=== PATIENT | male | born 1940 | race Caucasian/White ===

== ENCOUNTER → 2017-08-26 10:02 | Day surgery (SDC) | payer MEDICARE ==
[~2017-08-26 10:02] MED LIST: Heparin 2 UNITS/ML IVPREMIX* 0 ML IV ONE; Heparin 2 UNITS/ML IVPREMIX* 2,000 ML IV ONE; Heparin(*) 1000 UNIT/ML 10 ML VIAL CATH LAB IV ONE; Iohexol 350 (CONTRAST) 200 ML MDV IV ONE; Lidocaine 1% INJ* 10 MG/ML 30 ML SDV ONE; Midazolam* 1 MG/ML 10 ML VIAL (10 MG) ONE; VERAPAMIL 2.5 MG/ML 2 ML VIAL ** 5 mg/2 ml ONE; fentaNYL* 50 MCG/ML 2 ML VIAL (100 MCG VIAL) ONE; nitroGLYCERIN DRIP* 25,000 MCG/250 ML BTL ONE
[2017-08-26 11:21] LABS: ABS Basophils 0.1 10^3/ul (0-0.2); ABS Eosinophils 0.2 10^3/ul (0-0.6); ABS Lymphocytes 1.5 10^3/ul (1.0-4.8); ABS Monocytes 0.6 10^3/ul (0-0.8); ABS Neutrophils 4.4 10^3/ul (1.5-7.7); ABS Nucleated RBC 0 10^3/ul; Hematocrit 42 % (42-52); Hemoglobin 14.5 g/dl (14.0-18.0); Mean Corpuscular HGB Conc 34 g/dl (31-36); Mean Corpuscular Hemoglobin 31 pg (27-31); Mean Corpuscular Volume 90 fL (80-94); Mean Platelet Volume 9.3 um3 (7.4-10.4); Nucleated Red Blood Cells % 0.1; Platelet Count 180 10^3/ul (150-450); Red Blood Count 4.73 10^6/ul (4.0-5.4); Red Cell Distribution Width 14 % (10.5-15); White Blood Count 6.7 10^3/ul (3.5-10.8)
[2017-08-26 11:35] LABS: INR 0.99 (0.77-1.02)
[2017-08-26 11:43] LABS: EGFR Non-African American 66.1 (>60)
--- NOTE | 2017-08-26 12:15 | HP ---
CC: Dr. Gregory Macdonald; Dr. Masood Garcia; Dr. Len Mathur, Dept. of Cardiovascular Surgery, [facility]* DATE OF ADMISSION: 08/26/2017. CHIEF COMPLAINT: Patient now for cardiac catheterization in light of worsening mitral valve regurgitation from mitral valve prolapse with a question of a ruptured chordae tendineae. HISTORY OF PRESENT ILLNESS: The patient is a pleasant, 76-year-old gentleman who is followed in our group by Dr. Masood Garcia. He has a history of mitral valve prolapse from back in 2010. He has been watched for this more recently from 2015 [address] Garcia. He had an echocardiogram done in October of 2015 demonstrating normal LV function at 60 to 65 percent with posterior leaflet prolapse with at least moderate to severe anteriorly directed mitral regurgitation with moderate to severely dilated left atrium and mild pulmonary hypertension at 42 mmHg. He was last seen by Dr. Garcia in the office on 2016 and at that point he had stopped taking his blood pressure medications because he had felt tired and had a low blood pressure. At that time, he was otherwise fairly asymptomatic. He apparently underwent an exercise stress echo at that time and it was not felt that they needed to intervene at that time. More recently now, he called complaining about shortness of breath, progressive in nature. He describes when he walks he will get in sometimes. When he goes to lie down at night, sometimes he cannot lie down because he feels short of breath and has to sit up, and then eventually he will go lie down again and eventually go to sleep. He states he does not wake up in the middle of the night with shortness of breath. He denies lower leg edema. Because of these symptoms, an echocardiogram was performed on 08/24/2017 showing that the LVEF was 55 to 60 percent with the left atrium moderate to severely dilated. There was normal right ventricular size and function. There was mild to moderate aortic regurgitation. 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 He had mild pulmonary hypertension as well. Dr. Garcia discussed with the patient further and felt the patient needed, at this point in time, to have his mitral valve replaced. Dr. Garcia asked us to perform diagnostic cardiac catheterization on him in order to assess for the presence of coronary artery disease. Interestingly, the patient states when he walks, in addition to getting his shortness of breath, he feels somewhat nauseous, like he is going to throw up, but never throws up. He denies any specific chest or arm discomfort. PAST MEDICAL HISTORY: Skin lesions, hypertension, his mitral valve prolapse, a history of adenomatous polyp of the colon, and reported dyslipidemia. 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 HOME MEDICATIONS: Losartan/Hydrochlorothiazide 50/12.5 once a day. ALLERGIES: PENICILLIN and LISINOPRIL reportedly. FAMILY HISTORY: Father of colon cancer at 88; mother of lung cancer at 88. He is the only child. SOCIAL HISTORY: He is . He lives with his . He is retired. He has never smoked. He denies any excessive alcohol or drug usage. He drinks a fair amount of coffee on a regular basis. He does not exercise routinely. REVIEW OF SYSTEMS: He denies any significant weight loss. He denies any visual disturbance. He denies any hearing difficulties. The shortness of breath is as mentioned. He denies any palpitations or passing out spells. He denies any abdominal pain, bleeding, or constipation. He denies any difficulty urinating, any hematuria, or kidney disease. He denies any arthritis. He denies any new rashes. Neuro: He denies any aphasia, headache. Psych: He denies any depression. Endocrine: He denies any diabetes or thyroid disease. Hematological: He denies any bleeding or clotting. Immuno: Denies any chills or fever. PHYSICAL EXAMINATION When I see him in the catheterization hold area: VITAL SIGNS: Blood pressure 133/103, pulse 85 to 90, respirations are 16, O2 saturation 98 percent on room air. HEENT: Conjunctivae pink. Sclerae clear. Mouth reveals moist mucosa. NECK: Supple. Carotid has good upstroke and volume. I do not appreciate definitive bruit or transmitted murmur. LUNGS: Reveal no accessory muscle usage. There is good excursion. There are no active rales, rhonchi, or wheezes. HEART: Reveals no palpable heaves or thrills. There is a 3/6 holosystolic murmur heard throughout the precordial area to the apical region. ABDOMEN: Soft, nontender. EXTREMITIES: Without edema. Peripheral pulses are intact. MUSCULOSKELETAL: The patient moves all extremities appropriately. NEUROLOGIC: The patient is alert and oriented with normal mentation. PSYCHOLOGICAL: Patient with normal affect. IMAGING STUDY: Chest x-ray report recently performed on 08/24/2017 revealed cardiomegaly noted. There was no active cardiopulmonary disease. OVERALL ASSESSMENT: Jose now presents with worsening symptoms and clearly worsened mitral regurgitation according to the report of the most recent echocardiogram. At this point in time, we will be performing diagnostic cardiac catheterization to look for the presence of underlying coronary artery disease which would also have to be addressed by the surgeon at the time of surgery. We did have a discussion and Dr. Garcia had recommended Dr. Len Mathur at [facility] to the patient. He is in agreement with this and as such we will try to schedule this for as soon as possible to have him see Dr. Mathur with surgery perhaps the next day. I will personally speak with Dr. Mathur regarding this. Further management will be made pending results of the cardiac catheterization. The risks and benefits were explained. He understood them and wished to proceed. [id number]/[facility] #: [id number] MTDD
[2017-08-26 14:33] VITALS: BP 132/73
--- NOTE | 2017-08-27 01:45 | CATH ---
CC: Dr. Masood Garcia; Dr. Gregory Macdonald; Dr. Jhonathan Mathur, Department of Cardiovascular Surgery at [facility] CARDIAC CATHETERIZATION REPORT: DATE OF PROCEDURE: 08/26/17 INDICATION FOR PROCEDURE: The patient with progressive shortness of breath and severe mitral regurgitation with question of ruptured chordae tendineae, assess coronary anatomy to rule out the presence of coronary artery disease. PROCEDURE: Coronary arteriography, left heart catheterization, left ventriculography. The patient was interviewed and examined in the holding area where the risks and benefits were explained. He understood them and wished to proceed. He states that he has had progressive shortness of breath over the past several months of a more recent time. Interestingly he also notices that when he walks he develops a profound nauseous sensation like he is going to vomit and generalized weakness. He recently notified Dr. Garcia these symptoms and an echocardiogram was performed that was interpreted suggesting worsening of the mitral regurgitation and a possible ruptured chordae tendineae. Dr. Garcia asked if we could get the patient to undergo cardiac catheterization as soon as possible and as such he was scheduled for urgent cardiac catheterization. LABORATORY RESULTS: Precatheterization hemoglobin and hematocrit of 14.5 and 42 with a platelet count of 180,000. BUN and creatinine of 17 and 1, sodium 138 , potassium 4.2, chloride 105, bicarb 26. INR was 0.99. The right radial artery was assessed under ultrasound guidance in the holding area and found to be acceptable for an approach. EQUIPMENT UTILIZED: 1. A 6-Indian glide sheath. 2. A 5-Indian TIG 4 curve catheter was attempted for coronary arteriography. This was exchanged for an FL 3.5 curve left, 5-Indian left coronary catheter, and a FR 4- curve 5-Indian right coronary diagnostic catheter. 3. Left heart catheterization, left ventriculography were performed utilizing a 5-Indian pigtail Performa radial catheter. DESCRIPTION OF PROCEDURE: The patient was brought into the cardiovascular laboratory where a formal time-out was performed. He was prepped and draped in sterile fashion. The right radial artery area was anesthetized with 1% lidocaine. The right radial artery area was cannulated and a sheath was placed. Coronary arteriography was performed ultimately utilizing the Keyla catheters. Following this, central aortic pressure was recorded using the TIG Performa radial catheter advanced to the ascending aorta. The central aortic pressure was recorded. The catheter was then passed across the aortic valve into the left ventricle where left ventricular pressure was recorded. Left ventriculography was performed utilizing a total of 24 cc of Omnipaque dye at a rate of 12 cc per second. The catheter was then pulled across the aortic valve. At the end of the case, the catheter was removed over the exchange length wire and the sheath was removed and hemostasis was obtained with a Vasc Band. The total contrast used was 85 cc of Omnipaque dye. The radiation exposure included 8.9 minutes of fluoro time. The air kerma radiation was 1083 mGy. The DAP radiation was 6331 microgray/m2. RESULTS: HEMODYNAMIC DATA: Central aortic pressure recorded at 106/59 with a mean of 80, left ventricular pressure 104 with a left ventricular end diastolic pressure of 14. LEFT VENTRICULOGRAPHY: Performed in the THOMAS projection revealed symmetrical contracture in left ventricle with overall ejection fraction approximately 50% to 55%. There appeared to be probably severe (4+) mitral regurgitation with contrast regurgitating back on the first beat becoming equal and then slightly denser than the left ventricle on further beats. The left atrium appeared to be significantly enlarged. CORONARY ARTERIOGRAPHY: A. Left coronary artery: 1. Left main. The left main appeared to be widely patent. 2. Left anterior descending artery. The left anterior descending artery had very mild narrowing at its ostium. The proximal portion then had moderate narrowing about 60% to 65% leading to a moderate size first diagonal branch. Just prior to that, the LAD tapered as well and the ostium of the first diagonal branch appeared to have a 85% to 90% stenosis seen best in the AP view. The LAD itself also was noted to have a significant stenosis as much as 85%. Past this point was diffuse disease in the mid LAD with another area of age of 75% to 80% becoming more normal in caliber in its most distal portion. 3. Circumflex artery - a nondominant vessel. There is significant haze at the ostium of this vessel with a very high first obtuse marginal branch, which had a significant 85% lesion. The circumflex just past at that point as well as with the haziness in the ostium of the circumflex appeared to have a significant obstruction as much as 70%. The midportion of the circumflex had a 50% obstruction noted. B. Right coronary artery - a dominant vessel supplying a very thin PDA followed by a parallel first posterior left ventricular branch. There was a moderate size acute marginal branch, which had a significant 90% blockage at its origin. After this point, in the midportion of the right coronary artery, before turned down to the inferior surface of the heart, was a 95% obstruction. The proximal right coronary artery had mild 30% narrowing seen. OVERALL ASSESSMENT: Low normal left ventricular systolic function with an EF of 50% to 55%, with what appears to be significant mitral regurgitation. There is significant triple-vessel coronary artery disease involving the proximal LAD, ostium of the first diagonal branch, ostium of a high first obtuse marginal branch/ trifurcation marginal branch as well as the ostium with haze of the circumflex itself leading to not only the high first obtuse marginal branch but a low- lying posterior left ventricular branch as well as critical disease in the mid right coronary artery and the ostium of the moderate-sized right ventricular branch. Given these findings and the patient progressive symptoms and the critical nature of the 95% right coronary artery as well as the other lesions, the decision was made to transfer the patient to [facility] to Dr. Jhonathan Mathur's service who graciously accepted him for bypass and mitral valve repair if possible. This information was also shared with Dr. Masood Garcia, the patient's primary wire charger. [id number]/[facility] #: [id number] ОЛЬГА
== END | disposition home or self-care (01) ==
LOC: CHICATH 10:02
PROVIDERS: ATTEND Internal Medicine Cardiovascular Disease
DX: I08.0 Rheumatic disorders of both mitral and aortic valves (principal); I25.10 Atherosclerotic heart disease of native coronary artery without angina pectoris; I10 Essential (primary) hypertension; E78.5 Hyperlipidemia, unspecified; R06.02 Shortness of breath
CPT/HCPCS: 36415; 76937; 80053; 85025; 85610; 85730; 93005; 93452; 99156; 99157; J1644; J2250; J3010